=== PATIENT | male | born 1985 | race African-American/Black ===

== ENCOUNTER 2021-05-13 18:47 | Emergency (ER) | payer BC ==
[2021-05-13 19:13] VITALS: BP 144/80
[2021-05-13] MEDS ORDERED: AMOXICILLIN 250 MG CAPSULE PO STA (20:20)
--- NOTE | 2021-05-13 20:29 | ED Physician Documentation ---
PD HPI HEENT - Stated complaint Stated Complaint: TOOTH PX/SWELLING - Chief complaint Chief Complaint: Heent - History obtained from History obtained from: Patient - Additional information Additional information: Patient comes emergency department for chief complaint of left-sided facial swelling and dental pain. He states that last night, he was eating some halibut and that it turned out to be fairly chewy. He states when he closed his teeth on it, he felt a sudden pain and realized that the temporary filling in his left maxillary first molar had come out. Patient states he took some Aleve which did help with the pain, but has noticed that his left face has become increasingly swollen today. He states the pain is not too bad, but that his dentist will not see him until he gets on some antibiotics. The patient denies any fevers or chills. No nausea or vomiting. No difficulty breathing or tongue swelling. No drainage into his mouth. Review of Systems Ten Systems: 10 systems reviewed and negative Constitutional: reports: Reviewed and negative Eyes: reports: Reviewed and negative Ears: reports: Reviewed and negative Nose: reports: Reviewed and negative Throat: reports: Dental pain / toothache Cardiac: reports: Reviewed and negative Respiratory: reports: Reviewed and negative GI: reports: Reviewed and negative : reports: Reviewed and negative Skin: reports: Reviewed and negative Musculoskeletal: reports: Reviewed and negative Neurologic: reports: Reviewed and negative Psychiatric: reports: Reviewed and negative Endocrine: reports: Reviewed and negative Immunocompromised: reports: Reviewed and negative PD PAST MEDICAL HISTORY - Past Surgical History Past Surgical History: Yes - Present Medications Home Medications: Ambulatory Orders Medication Instructions Recorded Confirmed Amox/Clav 875/125 [Augmentin] 1 each PO Q12H #0 tablet 07/02/13 Ibuprofen [Motrin] 400 mg PO Q6H PRN #30 tablet 07/02/13 oxyCODONE/ACET 5/325 [Percocet 5 1 each PO Q4-6H PRN #20 tablet 07/02/13 mg/325 mg] Amoxicillin 500 mg PO TID 7 Days #21 cap 05/13/21 Tramadol HCl [Ultram] 50 mg PO Q6HR PRN #8 tablet 05/13/21 - Allergies Allergies/Adverse Reactions: Allergies Allergy/AdvReac Type Severity Reaction Status Date / Time No Known Drug Allergies Allergy Verified 05/13/13 10:30 - Social History Does the pt smoke?: Yes Smoking Status: Current every day smoker Does the pt drink ETOH?: Yes Does the pt have substance abuse?: No - POLST Patient has POLST: No PD ED PE NORMAL - Vitals Vital signs reviewed: Yes - General General: Alert and oriented X 3, No acute distress, Well developed/nourished - HEENT HEENT: Atraumatic, PERRL, EOMI, Moist mucous membranes, Other (Decayed left maxillary first molar with missing filling. Edema of the superiormost gingiva, as well as the associated buccal tissue noted. No fluctuance or mass. No drainage. No tongue swelling.) - Neck Neck: Supple, no meningeal sign, No adenopathy - Respiratory Respiratory: No respiratory distress - Derm Derm: Normal color, Warm and dry, No rash - Extremities Extremities: Normal ROM s pain (grossly) - Neuro Neuro: Alert and oriented X 3, battery builder 2-12 intact, Normal speech - Psych Psych: Normal mood, Normal affect Results - Vitals Vitals: Vital Signs - 24 hr 05/13/21 19:06 Temperature 36.9 C Heart Rate 84 Respiratory 16 Rate Blood Pressure 144/80 H O2 Saturation 97 Oxygen O2 Source Room air PD MEDICAL DECISION MAKING - ED course Complexity details: considered differential, d/w patient ED course: I discussed with the patient that we would start him on amoxicillin here. He should follow-up as soon as possible with his dentist for definitive care of his tooth. I have given him a small prescription for tramadol as well. We have discussed the usual indications for return. Departure - Departure Disposition: 01 Home, Self Care Clinical Impression: Dental infection Condition: Stable Instructions: ED Tooth Pain Prescriptions: Tramadol HCl [Ultram] 50 mg PO Q6HR PRN #8 tablet PRN Reason: Pain Amoxicillin 500 mg PO TID 7 Days #21 cap Discharge Date/Time: 05/13/21 20:36
== END 2021-05-13 20:36 | disposition home or self-care (01) ==
LOC: ED 18:47
DX: K04.7 Periapical abscess without sinus (principal); F17.200 Nicotine dependence, unspecified, uncomplicated
CPT/HCPCS: 99282; 99284; A9270

== ENCOUNTER 2021-10-06 18:41 | Emergency (ER) | payer BC ==
--- NOTE | 2021-10-06 20:07 | ED Physician Documentation ---
History of Present Illness - Stated complaint Stated Complaint: FATIGUE - Chief complaint Chief Complaint: General - History obtained from History obtained from: Patient - History of Present Illness Timing: How many days ago (3) Pain level max: 0 Pain level now: 0 - Additonal information Additional information: Patient states he has been sick for the past 3 days. Rhinorrhea, congestion and mild intermittent fever. Denies coughing. States he was Covid+ 3 months ago. No abdominal pain. No nausea or vomiting. Patient states his work has sent him here for a Covid test. Review of Systems Constitutional: reports: Fever (intermittent, subjective.) Ears: denies: Ear pain Throat: denies: Sore throat Respiratory: denies: Cough GI: denies: Vomiting, Diarrhea Skin: denies: Rash PD PAST MEDICAL HISTORY - Past Medical History Past Medical History: No - Past Surgical History Past Surgical History: Yes - Present Medications Home Medications: Ambulatory Orders Medication Instructions Recorded Confirmed Amox/Clav 875/125 [Augmentin] 1 each PO Q12H #0 tablet 07/02/13 Ibuprofen [Motrin] 400 mg PO Q6H PRN #30 tablet 07/02/13 oxyCODONE/ACET 5/325 [Percocet 5 1 each PO Q4-6H PRN #20 tablet 07/02/13 mg/325 mg] Amoxicillin 500 mg PO TID 7 Days #21 cap 05/13/21 Tramadol HCl [Ultram] 50 mg PO Q6HR PRN #8 tablet 05/13/21 - Allergies Allergies/Adverse Reactions: Allergies Allergy/AdvReac Type Severity Reaction Status Date / Time No Known Drug Allergies Allergy Verified 10/06/21 18:44 - Social History Does the pt smoke?: Yes Smoking Status: Current every day smoker Does the pt drink ETOH?: Yes Does the pt have substance abuse?: No - Immunizations Immunizations are current?: Yes - POLST Patient has POLST: No PD ED PE NORMAL - Vitals Vital signs reviewed: Yes - General General: Alert and oriented X 3, No acute distress - HEENT HEENT: PERRL, Ears normal, Moist mucous membranes, Pharynx benign - Neck Neck: Supple, no meningeal sign - Cardiac Cardiac: RRR - Respiratory Respiratory: No respiratory distress, Clear bilaterally - Derm Derm: Warm and dry, No rash - Neuro Neuro: Alert and oriented X 3 - Psych Psych: Normal mood, Normal affect Results - Vitals Vitals: Vital Signs - 24 hr 10/06/21 10/06/21 18:44 20:41 Temperature 37.2 C 36.6 C Heart Rate 116 H 97 Respiratory 17 18 Rate Blood Pressure 110/60 140/80 H O2 Saturation 97 98 Oxygen O2 Source Room air PD MEDICAL DECISION MAKING - ED course Complexity details: considered differential, d/w patient ED course: Patient with what appears to be a viral URI. Covid testing sent. Patient is well-appearing, nontoxic. Afebrile. No hypoxia or respiratory distress. No indication for x-ray. Patient counseled regarding signs and symptoms for which I believe and urgent re-evaluation would be necessary. Patient with good understanding of and agreement to plan and is comfortable going home at this time This document was made in part using voice recognition software. While efforts are made to proofread this document, sound alike and grammatical errors may occur. Departure - Departure Disposition: 01 Home, Self Care Clinical Impression: Viral URI Condition: Good Instructions: ED Viral Syndrome Follow-Up: your,doctor as needed [Other] Comments: Please follow-up with your doctor as needed. Return if you worsen. Drink plenty of fluids and rest. You have a Covid test pending. You need to self quarantine until the result is done and negative. The results should be done in 24-48 hours. We will call with a positive result, the fastest way to get a negative result for confirmation though is to go to the hospital website at [email or web address], click on the my [facility] tab and sign up for the patient portal. If any of your friends and/or family need to be tested, they can call the hospital at [phone] for an appointment to have their Covid test. Forms: Activity restrictions Discharge Date/Time: 10/06/21 20:43
[2021-10-06 20:42] VITALS: BP 140/80
== END 2021-10-06 20:43 | disposition home or self-care (01) ==
LOC: ED 18:41
DX: J06.9 Acute upper respiratory infection, unspecified (principal); B97.89 Other viral agents as the cause of diseases classified elsewhere; Z20.822 Contact with and (suspected) exposure to COVID-19; F17.200 Nicotine dependence, unspecified, uncomplicated; Z86.16 Personal history of COVID-19
CPT/HCPCS: 99282; 99283